=== PATIENT | female | born 1970 | race Caucasian/White ===

== ENCOUNTER 2024-03-01 20:30 | Emergency (ER) | payer OTHER, SELFPAY ==
[2024-03-01 20:39] VITALS: BP 163/103
[2024-03-01 22:27] LABS: Urine Albumin Negative (Neg - Trace); Urine Bilirubin Negative (Negative); Urine Character Clear (Clear); Urine Color Yellow; Urine Glucose Negative (Negative); Urine Ketone Negative (Negative); Urine Leukocyte 1+ (Negative); Urine Nitrite Negative (Negative); Urine Occult Blood 1+ (Negative); Urine Specific Gravity 1.015 (<1.030); Urine Urobilinogen Negative (Neg - 1+)
[2024-03-01 22:33] LABS: Urine Squamous Cell >30 /LPF (Few)
[2024-03-01 22:35] LABS: Urine Bacteria Many (Negative)
[2024-03-01 22:37] LABS: Amphetamines Negative (Negative); Barbiturates Negative (Negative); Benzodiazepines Negative (Negative); Buprenorphine Negative (Negative); Cocaine Positive (Negative); Marijuana Negative (Negative); Methadone Positive (Negative); Methamphetamines Negative (Negative); Opiates Positive (Negative); Phencyclidine Negative (Negative); Tricyclic Antidepressants Negative (Negative)
--- NOTE | 2024-03-01 23:04 | ED.GENMED ---
History of Present Illness
General
Chief Complaint: Crisis Evaluation
Source: patient
Time Seen by Provider: 03/01/24 21:10
History of Present Illness
History of Present Illness:
53-year-old female who presents with persistent depression. She states she has been clean for a long period time and recently started using drugs again. She has had several stressors in her life including her dog dying and her grandchild be unable
to visit her. The patient states that her boyfriend also got incarcerated. The patient admits that she is off for 2 weeks from work and just felt like she did not really need to get up for anything. She is tearful. She has been using heroin and
cocaine. She is on methadone. She just feels like nothing to live for denies any specific suicidal plan. Denies any medical complaints
Past History
Past History
ED Past Medical History: Asthma, Psychiatric (Anxiety, depression) and Other (Substance abuse)
Social History
Tobacco: Smoker
Drug: Cocaine and Narcotics
Phy Exam
Physical Exam
Physical Exam:
CONSTITUTIONAL Vital signs reviewed, Patient alert and oriented to person, place and time. Well-appearing
HEAD atraumatic, normocephalic.
EYES eyelids normal to inspection, Extraocular muscles intact, Conjunctiva normal, Sclera normal.
NECK normal range of motion, Trachea midline, no jugular venous distention.
RESP no respiratory distress
BACK No obvious deformities
UPPER EXTREMITY Gross Range of motion normal, gross motor strength normal
LOWER EXTREMITY Gross range of motion normal, Gross motor strength normal
NEURO Speech normal, No focal motor deficits include, Allyn coma scale 15, Memory normal, Cranial Nerves intact to screening exam.
SKIN Skin warm, dry, and normal in color. Does have a scabbed wound to the right face. No surrounding redness
PSYCHIATRIC Patient oriented to person place and time, Normal affect.
Course
Orders/Labs/Results
Orders:
Orders
03/01/24 22:13
Crisis Consult Urgent
Reason for Consult: suicidal
03/01/24 22:16
Fentanyl, Urine Urgent
HCG, Urine Qualitative Screen Urgent
Date Specimen was Collected: 03/01/24
Time Specimen was Collected: 22:13
Comment: ADD ON
Urinalysis Reflex To Culture Urgent
Date Specimen was Collected: 03/01/24
Time Specimen was Collected: 22:13
Urine Drug Abuse Screen Urgent
Date Specimen was Collected: 03/01/24
Time Specimen was Collected: 22:13
Urine Microscopic Reflex Cult Urgent
Urine Culture Urgent
JEY Source: U
Specimen Description:
Date Specimen was Collected: 03/01/24
Time Specimen was Collected: 22:13
03/01/24 23:03
Add On- LAB Urgent
Tests Added?: urine HCG
Complete Blood Count/With Diff Urgent
Comprehensive Metabolic Panel Urgent
Abnormal Lab Results
03/01/24 03/02/24
22:16 00:03
Alkaline Phosphatase 135 H U/L
(38-126)
Ur Occult Blood Reflex 1+ A
(Negative)
Leukocyte Esterase Rfl 1+ A
(Negative)
Urine RBC 11-15 A /HPF
(0-2)
Urine Bacteria (Reflex) Many A
(Negative)
Urine Opiates Screen Positive H
(Negative)
Urine Methadone Screen Positive H
(Negative)
Urine Fentanyl Screen Positive H
(Negative)
Urine Cocaine Screen Positive H
(Negative)
03/02/24 00:03
03/02/24 00:03
Vital Signs
Initial and Last Documented VS:
Initial Vital Signs
Temp Pulse Resp BP Pulse Ox
98.3 F 75 20 163/103 100
03/01/24 20:39 03/01/24 20:39 03/01/24 20:39 03/01/24 20:39 03/01/24 20:39
Last Documented Vital Signs
Temp Pulse Resp BP Pulse Ox
98.3 F 70 20 124/80 99
03/01/24 20:39 03/02/24 00:01 03/01/24 20:39 03/02/24 00:01 03/02/24 00:01
MDM/Problems Addressed
MDM/Problems Addressed:
Cocaine abuse, narcotics abuse, major depression
*Pulse Oximetry
Patient hypoxic: no
*Critical Care Note
Total Time (30-74mins, 75-104mins- exclusive of procedures): Not Applicable
Data Reviewed
Source: patient
Patient Management
Escalation/DeEscalation of care consider admission/obs:
Patient seen by crisis. Awaiting placement. Will need her methadone dose in the morning
ED Attending Note
-
Portions of this chart may have been created with voice recognition software.� Occasional wrong word or��sound alike� substitutions may have occurred due to the inherent limitations of voice recognition software.
Discharge Plan
Departure
Patient Disposition: Psych Facility
Date of Disposition: 03/01/24
Time of Disposition: 23:04
Discharge Problem:
Major depression
Interventions
Interventions:
*Risk Screen - Suicide Last Done: 03/01/24 20:33
*General Assessment Last Done: 03/01/24 20:39
*Neglect/Abuse Screening Last Done: 03/01/24 20:33
ED- Fall Risk Assessment Last Done: 03/01/24 20:39
*ED COVID-19 Vaccine History Last Done: 03/02/24 00:51
ED-Psychological Assessment Last Done: 03/01/24 21:45
Discharge Date and Time
Print Language: NEPALESE
[2024-03-01 23:11] LABS: Fentanyl, Urine Positive (Negative)
[2024-03-01 23:13] LABS: HCG, Urine Qualitative Screen Negative
[2024-03-02 00:01] VITALS: BP 124/80
[2024-03-02 00:29] LABS: % Basophils 0.3 % (0-2); % Eosinophils 2.3 % (0-6); % Immature Granulocytes 0.2 % (0-0.5); % Lymphocytes 26.1 % (20.5-51.1); % Monocytes 4.9 % (1.7-9.3); % Neutrophils 66.2 % (42.2-75.2); Absolute Eosinophils 0.2 10^3/uL (0-0.7); Absolute Lymphocytes 2.2 10^3/uL (1.2-3.4); Absolute Monocytes 0.4 10^3/uL (0.1-0.6); Absolute Neutrophils 5.7 10^3/uL (1.4-6.5); Hematocrit 44.5 % (37.0-47.0); Hemoglobin 14.7 g/dL (12.0-16.0); Mean Corpuscular Volume 90.8 fL (81.0-99.0); Mean Platelet Volume 10.4 fL (7.4-10.4); Nucleated Red Blood Cells % 0 %; Platelet Count 218 10^3/uL (130-400); White Blood Cell Count 8.6 10^3/uL (4.8-10.8)
[2024-03-02 00:41] LABS: ALT (SGPT) 23 U/L (0-35); AST (SGOT) 27 U/L (14-36); Albumin 4.6 g/dl (3.5-5.0); Alkaline Phosphatase 135 U/L (38-126); Blood Urea Nitrogen 12 mg/dl (7-17); Calcium 9.6 mg/dl (8.4-10.2); Carbon Dioxide 27 mmol/L (22-30); Chloride 101 mmol/L (98-107); Glucose 86 mg/dl (70-99); Potassium 4.3 mmol/L (3.5-5.1); Sodium 138 mmol/L (135-145); Total Bilirubin 0.3 mg/dl (0.2-1.3); Total Protein 7.5 g/dl (6.3-8.2); eGFR > 60.00
[2024-03-02 07:07] VITALS: BP 140/76; BMI 25.1
--- NOTE | 2024-03-02 08:26 | EDRN ---
george received the release verification for the pts methadone dosage and Dr. Wu placed the order, this RN called the pharmacy to send it to this RN
[2024-03-02] MEDS: NICODERM TRANSDERMAL 21 MG TRANSDERM (08:33)
--- NOTE | 2024-03-02 09:16 | EDRN ---
per pharmacy request, this [facility]
[2024-03-02] MEDS: METHADONE 100 MG/10 ML 124 MG PO (09:30)
[2024-03-02 12:00] VITALS: BP 129/81
== END 2024-03-02 13:26 ==
LOC: EMR 20:30
PROVIDERS: EMERGENCY PHYSICIAN Emergency Medicine
DX: F32.9 Major depressive disorder, single episode, unspecified (principal); F14.10 Cocaine abuse, uncomplicated; F17.200 Nicotine dependence, unspecified, uncomplicated; J45.909 Unspecified asthma, uncomplicated
CPT/HCPCS: 99285; 80053; 80306; 80307; 81003; 81015; 81025; 85025; 87086